=== PATIENT | female | born 1990 | race Caucasian/White ===

== ENCOUNTER → 2017-10-15 | Outpatient (REF) | payer OTHER ==
[2017-10-15 12:43] LABS: ALBUMIN 3.4 GM/DL (3.2-5.2); ALKALINE PHOSPHATASE 103 U/L (45-117); ALT/SGPT 34 U/L (12-78); ANION GAP 8 MEQ/L (8-16); AST/SGOT 20 U/L (7-37); BILIRUBIN,TOTAL 0.4 MG/DL (0.2-1.0); BLOOD UREA NITROGEN 13 MG/DL (7-18); CALCIUM LEVEL 8.9 MG/DL (8.5-10.1); CARBON DIOXIDE LEVEL 28 MEQ/L (21-32); CHLORIDE LEVEL 107 MEQ/L (98-107); CHOLESTEROL LEVEL 167 MG/DL (<200); CREATININE FOR GFR 0.86 MG/DL (0.55-1.30); FREE T4 0.99 NG/DL (0.76-1.46); GLOMERULAR FILTRATION RATE > 60.0 (>60); GLUCOSE, FASTING 95 MG/DL (70-100); HDL CHOLESTEROL 50 MG/DL (>40); LDL CHOLESTEROL 93.6 MG/DL (<100); NON-HDL-C 117 MG/DL; POTASSIUM SERUM 4.5 MEQ/L (3.5-5.1); SODIUM LEVEL 143 MEQ/L (136-145); TOTAL PROTEIN 6.5 GM/DL (6.4-8.2); TRIGLYCERIDES LEVEL 117 MG/DL (<150)
== END ==
LOC: M SFHCPLAZ 08:15
DX: Z00.00 Encounter for general adult medical examination without abnormal findings (principal); F32.9 Major depressive disorder, single episode, unspecified; Z68.41 Body mass index [BMI] 40.0-44.9, adult; Z13.220 Encounter for screening for lipoid disorders

== ENCOUNTER → 2018-01-08 | Outpatient (CLI) | payer OTHER ==
[2018-01-08 18:34] LABS: BASO % 0.2 % (0.0-1.0); EOS # 0.1 10^3/uL (0.0-0.50); EOS % 0.6 % (0.0-3.0); HEMATOCRIT 42.6 % (36.0-47.0); HEMOGLOBIN 13.7 g/dl (12.0-15.5); IMMATURE GRANULOCYTE % 0.4 % (0-3.0); LYMPH # 1.4 10^3/uL (1.5-6.5); LYMPH % 13.7 % (24.0-44.0); MEAN CORPUSCULAR HEMOGLOBIN 29.8 pg (27.0-33.0); MEAN CORPUSCULAR HGB CONC 32.2 g/dl (32.0-36.5); MEAN CORPUSCULAR VOLUME 92.8 fl (80.0-96.0); MONO # 0.6 10^3/uL (0.0-0.8); MONO % 5.8 % (0.0-5.0); NEUTROPHILS # 8.2 10^3/uL (1.8-7.7); NEUTROPHILS % 79.3 % (36.0-66.0); PLATELET COUNT, AUTOMATED 245 10^3/uL (150-450); RED BLOOD COUNT 4.59 10^6/uL (4.00-5.40); RED CELL DISTRIBUTION WIDTH 12.7 % (11.5-14.5); WHITE BLOOD COUNT 10.3 10^3/uL (4.0-10.0)
[2018-01-08 21:58] LABS: CHLAMYDIA DNA AMPLIFICATION NEGATIVE (NEGATIVE); GC DNA AMPLIFICATION NEGATIVE (NEGATIVE)
[2018-01-09 08:19] LABS: HBsAg Prenatal NEGATIVE (NEGATIVE); HIV 1&2 SCREEN CENTAUR NEGATIVE (NEGATIVE); RUBELLA IgG QUALITATIVE EQUIVOCAL (IMMUNE)
[2018-01-09 08:19] LABS: HEPATITIS C VIRUS ABY INDEX 0.2 INDEX (<0.8)
== END ==
LOC: M SMT 15:42
DX: Z34.81 Encounter for supervision of other normal pregnancy, first trimester (principal); Z3A.09 9 weeks gestation of pregnancy
CPT/HCPCS: 86762

== ENCOUNTER 2018-01-28 07:17 | Emergency (ER) | payer BC, OTHER ==
[2018-01-28 08:11] LABS: BASO % 0.1 % (0.0-1.0); EOS # 0.1 10^3/uL (0.0-0.50); EOS % 0.8 % (0.0-3.0); HEMATOCRIT 42.1 % (36.0-47.0); IMMATURE GRANULOCYTE % 0.3 % (0-3.0); LYMPH # 1.3 10^3/uL (1.5-6.5); LYMPH % 16.4 % (24.0-44.0); MEAN CORPUSCULAR HEMOGLOBIN 29.8 pg (27.0-33.0); MEAN CORPUSCULAR HGB CONC 33.3 g/dl (32.0-36.5); MEAN CORPUSCULAR VOLUME 89.6 fl (80.0-96.0); MONO # 0.4 10^3/uL (0.0-0.8); MONO % 4.9 % (0.0-5.0); NEUTROPHILS # 5.9 10^3/uL (1.8-7.7); NEUTROPHILS % 77.5 % (36.0-66.0); PLATELET COUNT, AUTOMATED 198 10^3/uL (150-450); RED CELL DISTRIBUTION WIDTH 12.9 % (11.5-14.5); WHITE BLOOD COUNT 7.6 10^3/uL (4.0-10.0)
[2018-01-28 08:40] LABS: KETONE, URINE AUTO RFX NEGATIVE (NEGATIVE); MUCUS, URINE RFX SMALL (NEGATIVE); NITRITE, URINE AUTO RFX NEGATIVE (NEGATIVE); RBC, URINE AUTO RFX 2 /HPF (0-3); SPECIFIC GRAVITY UR AUTO RFX 1.021 (1.002-1.035); SQUAM EPITHELIAL CELL UR AURFX 2 /HPF (0-6); URIC ACID CRYSTALS RFX SMALL; WBC, URINE AUTO RFX 3 /HPF (0-3)
[2018-01-28 08:42] LABS: HCG, SERUM QUANTITATIVE 60624 MIU/ML
[2018-01-28 09:06] LABS: LEUKOCYTE ESTERASE UR AUTO RFX TRACE (NEGATIVE)
[2018-01-28 10:30] LABS: CHLAMYDIA DNA AMPLIFICATION NEGATIVE (NEGATIVE); GC DNA AMPLIFICATION NEGATIVE (NEGATIVE)
== END 2018-01-28 09:48 | disposition home or self-care (01) ==
LOC: M ED 07:17
DX: O20.9 Hemorrhage in early pregnancy, unspecified (principal); Z3A.12 12 weeks gestation of pregnancy
CPT/HCPCS: 76801

== ENCOUNTER → 2018-02-13 | Outpatient (CLI) | payer BC, OTHER ==
[~2018-02-13] MED LIST: BACL10TA2 PO; EXCETAB80 PO; LEXA1TAB2 PO; NEXP1IMP SC; PREN1CHW4 PO; TIZA2CAP PO
[2018-02-13 17:31] LABS: HEMATOCRIT 45.1 % (36.0-47.0); HEMOGLOBIN 14.9 g/dl (12.0-15.5); MEAN CORPUSCULAR HEMOGLOBIN 30.3 pg (27.0-33.0); MEAN CORPUSCULAR VOLUME 91.9 fl (80.0-96.0); PLATELET COUNT, AUTOMATED 221 10^3/uL (150-450); RED BLOOD COUNT 4.91 10^6/uL (4.00-5.40); WHITE BLOOD COUNT 9.2 10^3/uL (4.0-10.0)
[2018-02-13 17:38] LABS: ALT/SGPT 23 U/L (12-78); BILIRUBIN,TOTAL 0.6 MG/DL (0.2-1.0); CREATININE FOR GFR 0.74 MG/DL (0.55-1.30); GLOMERULAR FILTRATION RATE > 60.0 (>60); LDH LACTATE DEHYDROGENASE 200 U/L (84-246); URIC ACID 2.4 MG/DL (2.6-6.0)
== END ==
LOC: M SMT 13:34
PROVIDERS: ATTEND Advanced Practice Midwife
DX: O10.12 Pre-existing hypertensive heart disease complicating childbirth (principal)

== ENCOUNTER → 2018-02-13 | Outpatient (REF) | payer BC, OTHER ==
[2018-02-13 19:01] LABS: TOTAL PROTEIN,RANDOM URINE 12.1 MG/DL (0.0-12.0)
== END ==
LOC: M LAB REF 17:33
PROVIDERS: ATTEND Advanced Practice Midwife
DX: O10.012 Pre-existing essential hypertension complicating pregnancy, second trimester (principal)

== ENCOUNTER → 2018-03-11 | Outpatient (CLI) | payer BC, OTHER ==
--- NOTE | 2018-03-11 19:52 | REP ---
Clinical: Anatomical evaluation. Comparison: 01/28/2018 . Findings: Examination demonstrates a single live intrauterine in footling breech presentation. motion is identified by technologist. Placenta is noted posterior and grade grade zero without evidence for placenta previa or abruption. Amniotic fluid volume is normal. Cervix measures 2.8 cm in length and appears closed. No evidence for nuchal cord. Gestational age by LMP 18 weeks 1 day with AMELIA 08/11/2018 . Gestational age by current measurements 17 weeks 6 days with AMELIA 08/13/2018 . FHR equals 147 beats per minute. BPD 3.7 cm 17 weeks 2 day HC 14.6 cm 17 weeks 6 day AC 12.3 cm 17 weeks 6 days FL 2.7 cm 18 weeks 1 day HL 2.6 cm 18 weeks 0 days HC/AC ratio 1.19 Estimated weight 219 grams ( 43rd percentile). Anatomical assessment demonstrates normal structures including cranium, choroid plexus, cavum, cerebellum/posterior fossa, facial features, lungs, diaphragm, stomach, cord insertion/three-vessel cord, kidneys/bladder, spine, and extremities. Limited evaluation of the heart/ventricular outflow tracts and facial profile noted. Impression: Single live intrauterine in footling breech presentation demonstrating appropriate interval growth. While no gross abnormalities are identified, limitations as noted above may warrant reevaluation and follow-up. Electronically Signed by Davis Sandoval MD 03/11/2018 07:45 P
== END ==
LOC: M LRY 14:58
PROVIDERS: ATTEND Advanced Practice Midwife
DX: Z36.9 Encounter for antenatal screening, unspecified (principal); Z3A.17 17 weeks gestation of pregnancy

== ENCOUNTER → 2018-04-01 | Outpatient (CLI) | payer BC, OTHER ==
--- NOTE | 2018-04-01 19:12 | REP ---
OB ULTRASOUND: Real-time sonographic evaluation of the gravid uterus is performed. There is a single living intrauterine gestation. The estimated gestational age is 21 weeks 1 day, EDC 08/11/2018. Today's measurements indicate appropriate growth. BPD 47 mm = 20 weeks 2 days, at the 27th percentile. HC 182 mm = 20 weeks 4 days, at the 34th percentile. AC 164 mm = 21 weeks 3 day, at the 57th percentile. Femur length 36 mm = 21 weeks 3 days, at the 59th percentile. HC/AC ratio 1.11 within normal range. Estimated weight 415 grams at the 54th percentile. heart rate 141 beats per minute. SEEN/GROSSLY UNREMARKABLE Lateral ventricles Yes Posterior fossa Yes Upper lip Yes Four-chamber heart No LVOT No RVOT No Stomach Yes Cord insertion Yes Three vessel cord Yes Kidneys Yes Bladder Yes Spine Yes position: Vertex. Placenta: Posterior and grade 0 with no previa or abruption. Amniotic fluid: Within normal limits. Cervix is closed and measures 3.4 cm in length. Electronically Signed by Baldomero Gomez MD 04/02/2018 10:30 A
== END ==
LOC: M LRY 13:40
PROVIDERS: ATTEND Specialist
DX: O10.012 Pre-existing essential hypertension complicating pregnancy, second trimester (principal); Z36.89 Encounter for other specified antenatal screening; Z3A.21 21 weeks gestation of pregnancy

== ENCOUNTER 2018-04-23 10:28 | Outpatient (CLI) | payer BC, OTHER ==
[~2018-04-23] VITALS: Ht 167.6 cm; Wt 112.0 kg
[2018-04-23] MEDS ORDERED: FIORICET TAB PO ONE (11:00)
[2018-04-23] MEDS ORDERED: ESGI1CAP PO (12:56)
== END 2018-04-23 12:15 | disposition home or self-care (01) ==
LOC: M LDO 10:28
PROVIDERS: ATTEND Obstetrics & Gynecology
DX: O26.892 Other specified pregnancy related conditions, second trimester (principal); Z3A.24 24 weeks gestation of pregnancy; G43.909 Migraine, unspecified, not intractable, without status migrainosus; O99.353 Diseases of the nervous system complicating pregnancy, third trimester
CPT/HCPCS: 59025; G0378; G0463

== ENCOUNTER → 2018-05-03 | Outpatient (CLI) | payer BC, OTHER ==
[~2018-05-03] MED LIST changes: +ESGI1CAP PO
--- NOTE | 2018-05-07 08:22 | REP ---
Clinical: Anatomical evaluation. Comparison: 04/01/2018 . Findings: Examination demonstrates a single live intrauterine in cephalic presentation. motion is identified by technologist. Placenta is noted posterior and grade grade zero without evidence for placenta previa or abruption. Amniotic fluid volume is normal. Cervix measures 3.6 cm in length and appears closed. No evidence for nuchal cord. Gestational age by LMP 25 weeks 5 days with AMELIA 08/11/2018 . Gestational age by current measurements 25 weeks 0 days with AMELIA 08/16/2018 . FHR equals 153 beats per minute. Estimated weight 808 grams ( 36 percentile). Anatomical assessment demonstrates normal structures including cranium, choroid plexus, cavum, cerebellum/posterior fossa, facial features, lungs, ventricular outflow tracts, diaphragm, stomach, cord insertion/three-vessel cord, kidneys/bladder, spine, and extremities. Impression: 1. Single live intrauterine in cephalic presentation demonstrating appropriate interval growth. 2. Limited evaluation of the four-chamber heart again noted due to lie and maternal body habitus. Remainder of the anatomical assessment is complete and normal. Electronically Signed by Davis Sandoval MD 05/07/2018 08:12 A
== END ==
LOC: M LRY 13:41
PROVIDERS: ATTEND Advanced Practice Midwife
DX: O10.012 Pre-existing essential hypertension complicating pregnancy, second trimester (principal); Z3A.25 25 weeks gestation of pregnancy

== ENCOUNTER → 2018-05-07 | Outpatient (CLI) | payer BC, OTHER ==
[2018-05-07 17:41] LABS: HEMATOCRIT 40.7 % (36.0-47.0); HEMOGLOBIN 12.8 g/dl (12.0-15.5); MEAN CORPUSCULAR HEMOGLOBIN 30.9 pg (27.0-33.0); MEAN CORPUSCULAR HGB CONC 31.4 g/dl (32.0-36.5); MEAN CORPUSCULAR VOLUME 98.3 fl (80.0-96.0); PLATELET COUNT, AUTOMATED 177 10^3/uL (150-450); RED BLOOD COUNT 4.14 10^6/uL (4.00-5.40)
== END ==
LOC: M SMT 10:22
PROVIDERS: ATTEND Advanced Practice Midwife
DX: O10.012 Pre-existing essential hypertension complicating pregnancy, second trimester (principal)

== ENCOUNTER → 2018-06-17 | Outpatient (CLI) | payer BC, OTHER ==
--- NOTE | 2018-06-18 03:46 | REP ---
Clinical: Hypertension for growth evaluation. Comparison: 05/03/2018 . Findings: Examination demonstrates a single live intrauterine in cephalic presentation. motion is identified by technologist. Placenta is noted posterior and grade at one without evidence for placenta previa or abruption. Amniotic fluid volume is normal. Cervix appears closed. No evidence for nuchal cord. Gestational age by LMP 32 weeks 1 day with AMELIA 08/11/2018 . Gestational age by current measurements 32 weeks 1 day with AMELIA the 08/11/2018 . FHR equals 141 beats per minute. BPD 8.0 cm 32 weeks 2 days HC 29.7 cm 32 weeks 6 days AC 28.9 cm 32 weeks 6 days FL 6.0 cm 31 weeks 3 days HL 5.4 cm 31 weeks 2 days HC/AC ratio 1.03 Estimated weight 1962 grams ( 49 percentile). Amniotic fluid index: 8.7 cm (8.6 - 24.2) Umbilical cord SD ratio: 3.24 (2.45 - 3.45). Anatomical assessment demonstrates normal structures including cranium, choroid plexus, cavum, facial features, lungs, four-chamber heart/ventricular outflow tracts, diaphragm, stomach, cord insertion/three-vessel cord, kidneys/bladder, and spine. Impression: 1. Single live advanced gestation in cephalic presentation demonstrating appropriate interval growth. 2. No gross abnormalities are identified. Electronically Signed by Davis Sandoval MD 06/18/2018 03:37 A
== END ==
LOC: M RAD 10:10
PROVIDERS: ATTEND Advanced Practice Midwife
DX: O10.013 Pre-existing essential hypertension complicating pregnancy, third trimester (principal); Z3A.32 32 weeks gestation of pregnancy

== ENCOUNTER → 2018-06-18 | Outpatient (CLI) | payer BC, OTHER ==
--- NOTE | 2018-06-18 16:47 | REP ---
BIOPHYSICAL PROFILE: HISTORY: Essential hypertension. A single intrauterine is present in vertex presentation. heart rate is 150 beats per minute. The placenta is posterior. There is no placenta previa or abruption. Amniotic fluid is 12.3 cm. The amniotic fluid volume is normal. Biophysical profile is 8/8. PSV 47.4 cubic centimeters. SD ratio 3.18. RI 0.69. IMPRESSION:The biophysical profile is 8/8. Electronically Signed by John Raphael MD 06/18/2018 04:48 P
== END ==
LOC: M RAD 14:15
PROVIDERS: ATTEND Obstetrics & Gynecology
DX: O10.013 Pre-existing essential hypertension complicating pregnancy, third trimester (principal)

== ENCOUNTER → 2018-07-17 | Outpatient (REF) | payer OTHER ==
[~2018-07-17] MED LIST changes: +LABE100T36 PO; +ZANTTAB PO
== END ==
LOC: M LAB REF 17:07
PROVIDERS: ATTEND Advanced Practice Midwife
DX: O10.013 Pre-existing essential hypertension complicating pregnancy, third trimester (principal)

== ENCOUNTER 2018-07-21 21:14 | Outpatient (CLI) | payer BC, OTHER ==
[~2018-07-21] VITALS: Ht 167.6 cm; Wt 113.5 kg
[~2018-07-21 21:14] MED LIST changes: -LABE100T36 PO; -ZANTTAB PO
[2018-07-21 21:28] VITALS: BP 139/72
[2018-07-21] MEDS ORDERED: LABE100T36 PO (22:03)
[2018-07-21] MEDS ORDERED: ZANTTAB PO (22:04)
[2018-07-27] MEDS ORDERED: TUMS500C PO (17:59)
[2018-07-27] MEDS ORDERED: MAPA500T2 PO (17:59)
[2018-07-27] MEDS ORDERED: SCOP1PAT2 TOP (17:59)
[2018-07-30] MEDS ORDERED: IBUP80TA PO (07:21)
[2018-07-30] MEDS ORDERED: ACET-683 PO (07:21)
== END 2018-07-21 22:40 | disposition home or self-care (01) ==
LOC: M LDO 21:14
PROVIDERS: ATTEND Obstetrics & Gynecology
DX: O36.8130 Decreased fetal movements, third trimester, not applicable or unspecified (principal); Z3A.37 37 weeks gestation of pregnancy
CPT/HCPCS: 59025; 76815; G0378; G0463

== ENCOUNTER → 2018-07-24 | Outpatient (CLI) | payer BC, OTHER ==
[~2018-07-24] MED LIST changes: +ACET-683 PO; +IBUP80TA PO; +LABE100T36 PO; +MAPA500T2 PO; +SCOP1PAT2 TOP; +TUMS500C PO; +ZANTTAB PO
== END ==
LOC: M WUC 15:58
PROVIDERS: ATTEND Advanced Practice Midwife
DX: O10.013 Pre-existing essential hypertension complicating pregnancy, third trimester (principal)

== ENCOUNTER → 2019-01-09 | Outpatient (REF) | payer OTHER ==
[~2019-01-09] MED LIST changes: +ZANT150T40 PO; -ZANTTAB PO
== END ==
LOC: M LAB REF 15:00
PROVIDERS: ATTEND Physician Assistant
DX: N39.0 Urinary tract infection, site not specified (principal)

== ENCOUNTER → 2019-08-12 | Outpatient (REF) | payer OTHER ==
[2019-08-12 14:30] LABS: ALBUMIN 3.8 GM/DL (3.2-5.2); ALT/SGPT 26 U/L (12-78); BILIRUBIN,TOTAL 0.7 MG/DL (0.2-1.0); BLOOD UREA NITROGEN 12 MG/DL (7-18); CALCIUM LEVEL 9.1 MG/DL (8.5-10.1); CARBON DIOXIDE LEVEL 27 MEQ/L (21-32); CHLORIDE LEVEL 107 MEQ/L (98-107); CHOLESTEROL LEVEL 208 MG/DL (<200); CREATININE FOR GFR 0.86 MG/DL (0.55-1.30); FREE T4 1.19 NG/DL (0.76-1.46); GLOMERULAR FILTRATION RATE > 60.0 (>60); GLUCOSE, FASTING 95 MG/DL (70-100); HDL CHOLESTEROL 50 MG/DL (>40); LDL CHOLESTEROL 141 MG/DL (<100); NON-HDL-C 158 MG/DL; SODIUM LEVEL 138 MEQ/L (136-145); TOTAL PROTEIN 6.9 GM/DL (6.4-8.2); TRIGLYCERIDES LEVEL 86 MG/DL (<150)
== END ==
LOC: M SFHCPLAZ 09:57
PROVIDERS: ATTEND Physician Assistant
DX: F32.9 Major depressive disorder, single episode, unspecified (principal); F41.9 Anxiety disorder, unspecified; I11.9 Hypertensive heart disease without heart failure; Z13.220 Encounter for screening for lipoid disorders

== ENCOUNTER 2020-02-18 11:14 | Emergency (ER) | payer OTHER ==
[~2020-02-18] VITALS: Ht 167.6 cm; Wt 122.7 kg
[2020-02-18] MEDS ORDERED: PARO20TA3 PO (11:20)
[2020-02-18] MEDS ORDERED: LISI10TA4 PO (11:20)
--- NOTE | 2020-02-18 11:52 | REP ---
INDICATION: trauma COMPARISON: None. TECHNIQUE: AP, lateral, bilateral oblique views. FINDINGS: Moderate swelling. No obvious acute fracture or dislocation. Ankle mortise appears intact. IMPRESSION: Moderate swelling. No obvious acute fracture or dislocation. <Electronically signed by Davis Sandoval > 02/18/20 [id number]
[2020-02-18] MEDS ORDERED: ACETAMINOPHEN 500 MG TAB PO ONE (12:15)
[2020-02-18 12:32] VITALS: BP 136/71
== END 2020-02-18 12:48 | disposition home or self-care (01) ==
LOC: M ED 11:14
DX: S93.401A Sprain of unspecified ligament of right ankle, initial encounter (principal); X50.9XXA Other and unspecified overexertion or strenuous movements or postures, initial encounter; Y92.012 Bathroom of single-family (private) house as the place of occurrence of the external cause; I10 Essential (primary) hypertension; F33.9 Major depressive disorder, recurrent, unspecified; F41.9 Anxiety disorder, unspecified; Z79.899 Other long term (current) drug therapy; Z88.8 Allergy status to other drugs, medicaments and biological substances

== ENCOUNTER → 2020-06-07 | Outpatient (CLI) | payer OTHER ==
[~2020-06-07] MED LIST changes: -LABE100T36 PO; +LABE100T5 PO; +LISI10TA22 PO; +PARO20TA3 PO
--- NOTE | 2020-06-08 20:25 | ECGEPIP ---
[facility] Test Date: 2020-06-07 Pat Name: HERBIE BELTRAN Department: Room: - Gender: Female Second Worker: christopher : 1990 Requested By: Deep Kramer Order Number: [id number] Reading MD: Augustus Griffiths Measurements Intervals Soso Rate: 91 P: 36 FL: 184 QRS: 41 QRSD: 90 T: 24 QT: 340 QTc: 418 Interpretive Statements SINUS RHYTHM NO PRIOR Electronically Signed on 06-08-2020 20:25:10 EDT by Augustus Griffiths
== END ==
LOC: M EKG 14:00
PROVIDERS: ATTEND Psychiatry & Neurology Psychiatry
DX: Z79.899 Other long term (current) drug therapy (principal)

== ENCOUNTER → 2021-09-06 | Outpatient (CLI) | payer OTHER ==
[~2021-09-06] MED LIST changes: +ETON68IM SC; -NEXP1IMP SC; -SCOP1PAT2 TOP; +TRAN1DIS4 TOP
[2021-09-06 17:15] LABS: BASO % 0.2 % (0.0-1.0); EOS # 0.1 10^3/uL (0.0-0.5); EOS % 0.8 % (0.0-3.0); HEMATOCRIT 42.8 % (36.0-47.0); HEMOGLOBIN 13.9 g/dl (12.0-15.5); LYMPH # 1.2 10^3/uL (1.5-5.0); LYMPH % 12.7 % (24.0-44.0); MEAN CORPUSCULAR HEMOGLOBIN 28.9 pg (27.0-33.0); MEAN CORPUSCULAR HGB CONC 32.5 g/dl (32.0-36.5); MONO # 0.5 10^3/uL (0.0-0.8); MONO % 5.6 % (2.0-8.0); NEUTROPHILS # 7.4 10^3/uL (1.5-8.5); NEUTROPHILS % 80.3 % (36.0-66.0); PLATELET COUNT, AUTOMATED 252 10^3/uL (150-450); RED BLOOD COUNT 4.81 10^6/uL (4.00-5.40); WHITE BLOOD COUNT 9.2 10^3/uL (4.0-10.0)
[2021-09-06 18:02] LABS: ALT/SGPT 18 U/L (12-78); BILIRUBIN,TOTAL 0.8 MG/DL (0.2-1.0); CREATININE FOR GFR 0.74 MG/DL (0.55-1.30); GLOMERULAR FILTRATION RATE > 60.0 (>60); LDH LACTATE DEHYDROGENASE 190 U/L (84-246); URIC ACID 2.5 MG/DL (2.6-6.0)
[2021-09-06 18:12] LABS: TOTAL PROTEIN,RANDOM URINE 13.3 MG/DL (0.0-12.0)
[2021-09-06 20:07] LABS: HEPATITIS C VIRUS ABY INDEX 0.1 INDEX (<0.8); HIV 1&2 SCREEN CENTAUR NEGATIVE (NEGATIVE)
[2021-09-06 21:08] LABS: GC DNA AMPLIFICATION NEGATIVE (NEGATIVE)
== END ==
LOC: M PLALAB 15:52
PROVIDERS: ATTEND Advanced Practice Midwife
DX: Z34.91 Encounter for supervision of normal pregnancy, unspecified, first trimester (principal); Z3A.00 Weeks of gestation of pregnancy not specified

== ENCOUNTER → 2021-10-06 | Outpatient (REF) | payer OTHER ==
[~2021-10-06] MED LIST changes: -LABE100T5 PO; +LABE100T71 PO
== END ==
LOC: M PLALAB 10:44
PROVIDERS: ATTEND Obstetrics & Gynecology
DX: R82.90 Unspecified abnormal findings in urine (principal); Z53.8 Procedure and treatment not carried out for other reasons

== ENCOUNTER → 2021-10-06 | Outpatient (REF) | payer OTHER | LOC: M SFHCWAGY 13:04 | PROVIDERS: ATTEND Obstetrics & Gynecology | DX: R82.90 Unspecified abnormal findings in urine (principal) ==

== ENCOUNTER → 2021-12-01 | Outpatient (CLI) | payer OTHER | LOC: M WHC 14:41 | PROVIDERS: ATTEND Obstetrics & Gynecology | DX: Z36.2 Encounter for other antenatal screening follow-up (principal); Z3A.00 Weeks of gestation of pregnancy not specified ==

== ENCOUNTER → 2022-01-04 | Outpatient (CLI) | payer OTHER | LOC: M WHC 12:47 | PROVIDERS: ATTEND Specialist | DX: Z34.82 Encounter for supervision of other normal pregnancy, second trimester (principal); Z3A.29 29 weeks gestation of pregnancy ==

== ENCOUNTER → 2022-01-13 | Outpatient (CLI) | payer OTHER ==
[2022-01-13 11:53] LABS: HEMATOCRIT 37.8 % (36.0-47.0); HEMOGLOBIN 12.4 g/dl (12.0-15.5); MEAN CORPUSCULAR HEMOGLOBIN 30.3 pg (27.0-33.0); MEAN CORPUSCULAR HGB CONC 32.8 g/dl (32.0-36.5); MEAN CORPUSCULAR VOLUME 92.4 fl (80.0-96.0); PLATELET COUNT, AUTOMATED 162 10^3/uL (150-450); RED BLOOD COUNT 4.09 10^6/uL (4.00-5.40); WHITE BLOOD COUNT 8.8 10^3/uL (4.0-10.0)
[2022-01-13 14:17] LABS: GC DNA AMPLIFICATION NEGATIVE (NEGATIVE)
== END ==
LOC: M LAB 11:03
PROVIDERS: ATTEND Specialist
DX: Z34.82 Encounter for supervision of other normal pregnancy, second trimester (principal)

== ENCOUNTER → 2022-02-21 | Outpatient (REF) | payer OTHER | LOC: M SFHCWAGY 13:01 | PROVIDERS: ATTEND Advanced Practice Midwife | DX: Z34.93 Encounter for supervision of normal pregnancy, unspecified, third trimester (principal) ==

== ENCOUNTER → 2022-03-07 | Outpatient (CLI) | payer OTHER ==
[2022-03-07 13:28] LABS: HEMATOCRIT 38.1 % (36.0-47.0); HEMOGLOBIN 12.3 g/dl (12.0-15.5); MEAN CORPUSCULAR HEMOGLOBIN 30.1 pg (27.0-33.0); MEAN CORPUSCULAR HGB CONC 32.3 g/dl (32.0-36.5); MEAN CORPUSCULAR VOLUME 93.2 fl (80.0-96.0); PLATELET COUNT, AUTOMATED 146 10^3/uL (150-450); RED BLOOD COUNT 4.09 10^6/uL (4.00-5.40); WHITE BLOOD COUNT 9.1 10^3/uL (4.0-10.0)
[2022-03-07 13:46] LABS: TOTAL PROTEIN,RANDOM URINE 14.7 MG/DL (0.0-14.0)
[2022-03-07 13:49] LABS: URIC ACID 3.3 MG/DL (3.1-7.8)
[2022-03-07 13:51] LABS: CREATININE,RANDOM URINE 103.1 MG/DL; LDH LACTATE DEHYDROGENASE 176 U/L (120-246)
[2022-03-07 13:57] LABS: ALT/SGPT < 9 U/L (7.0-40); AST/SGOT 14 U/L (<34); BILIRUBIN,TOTAL 0.5 MG/DL (0.3-1.2); CREATININE FOR GFR 0.67 MG/DL (0.55-1.30); GLOMERULAR FILTRATION RATE > 60.0 (>60)
== END ==
LOC: M PLALAB 09:35
PROVIDERS: ATTEND Advanced Practice Midwife
DX: O10.013 Pre-existing essential hypertension complicating pregnancy, third trimester (principal); Z3A.00 Weeks of gestation of pregnancy not specified

== ENCOUNTER 2022-03-11 10:19 | Inpatient (IN) | payer OTHER ==
[2022-03-11] VITALS (39 sets, daily range): BP systolic 116–194; BP diastolic 55–97
[~2022-03-11] VITALS: Ht 167.6 cm; Wt 118.0 kg
[2022-03-11] MEDS ORDERED: LIDOCAINE 1% MDV 20ML VIAL INFIL PRN (10:50)
[2022-03-11] MEDS ORDERED: OXYTOCIN DRIP 30 UNITS in IV 1 EA IV PRN (10:50)
[2022-03-11] MEDS ORDERED: RITA20TA PO (11:21)
[2022-03-11] MEDS ORDERED: TUMS500C PO (11:21)
[2022-03-11] MEDS ORDERED: DICL10TA PO (11:21)
[2022-03-11] MEDS ORDERED: COLA100C5 PO (11:21)
[2022-03-11 11:24] LABS: HEMATOCRIT 36.8 % (36.0-47.0); HEMOGLOBIN 12.3 g/dl (12.0-15.5); MEAN CORPUSCULAR HEMOGLOBIN 30.4 pg (27.0-33.0); MEAN CORPUSCULAR HGB CONC 33.4 g/dl (32.0-36.5); MEAN CORPUSCULAR VOLUME 90.9 fl (80.0-96.0); PLATELET COUNT, AUTOMATED 134 10^3/uL (150-450); RED BLOOD COUNT 4.05 10^6/uL (4.00-5.40); WHITE BLOOD COUNT 8.7 10^3/uL (4.0-10.0)
[2022-03-11] MEDS: miSOPROStol 50MCG 1/2 TABLET SL SCH ×3 (11:24→21:24)
[2022-03-11] MEDS ORDERED: HOME MED LIST COMPLETE! XX SCH (11:25)
[2022-03-11] MEDS ORDERED: LR 500 ML IV PRN (19:10)
[2022-03-11] MEDS ORDERED: diphenhydrAMINE 50MG/ML VIAL IV PRN (19:10)
[2022-03-11] MEDS ORDERED: ePHEDrine SULFATE 25 MG/5 ML(5MG/ML) SYRINGE IVP PRN (19:10)
[2022-03-11] MEDS ORDERED: ONDANSETRON 4MG 2ML VIAL IV PRN (19:10)
[2022-03-11] MEDS ORDERED: EPIDURAL/PCA KEYS XX PRN (19:10)
[2022-03-11] MEDS ORDERED: NALOXONE INJ 0.4MG/1ML VIAL IV PRN (19:10)
[2022-03-11] MEDS: FENTANYL/ROPIVACAINE/NACL BAG 100 ML EPIDURAL SCH (19:49)
[2022-03-11] MEDS ORDERED: ACETAMINOPHEN 500 MG TAB PO ONE (21:45)
[2022-03-11] MEDS ORDERED: BUTORPHANOL 2 MG/ML 1ML VIAL IV ONE (23:40)
[2022-03-11] MEDS ORDERED: PROMETHAZINE 25MG/ML 1ML VIAL IV ONE (23:40)
[2022-03-11] MEDS ORDERED: OXYTOCIN DRIP 30 UNITS in IV 1 EA IV SCH (23:55)
[2022-03-12] VITALS (19 sets, daily range): BP systolic 120–147; BP diastolic 67–107
[2022-03-12] MEDS: FENTANYL/ROPIVACAINE/NACL BAG 100 ML EPIDURAL SCH (05:10)
[2022-03-12] MEDS ORDERED: IBUPROFEN 600MG TAB PO PRN (07:55)
[2022-03-12] MEDS ORDERED: IBUPROFEN 800 MG TAB PO PRN (07:55)
[2022-03-12] MEDS ORDERED: DIBUCAINE 1% OINTMENT 30GM TOP PRN (07:55)
[2022-03-12] MEDS ORDERED: ACETAMINOPHEN 500 MG TAB PO PRN (07:55)
[2022-03-12] MEDS ORDERED: METHYLERGONOVINE MALEATE 0.2 MG TAB PO PRN (07:55)
[2022-03-12] MEDS ORDERED: RHOGAM 300MCG (1500IU) INJ IM SCH (07:55)
[2022-03-12] MEDS ORDERED: DOCUSATE SODIUM 100MG CAPSULE PO PRN (07:55)
[2022-03-12] MEDS: PRENATAL VITAMINS CHEWABLE TABLET PO SCH (09:00)
[2022-03-13 06:00] VITALS: BP 126/63
[2022-03-13] MEDS: ACETAMINOPHEN TAB 650MG DOSE (2X325MG) PO PRN ×2 (06:02→23:50)
[2022-03-13] MEDS: PRENATAL VITAMINS CHEWABLE TABLET PO SCH (09:00)
[2022-03-13 09:50] VITALS: BP 125/79
[2022-03-13 15:15] VITALS: BP 138/70
[2022-03-13 18:00] VITALS: BP 134/68
[2022-03-14] MEDS: ACETAMINOPHEN TAB 650MG DOSE (2X325MG) PO PRN (04:00)
[2022-03-14 06:00] VITALS: BP 113/73
[2022-03-14] MEDS: PRENATAL VITAMINS CHEWABLE TABLET PO SCH (07:36)
[2022-03-14] MEDS ORDERED: MEASLES,MUMPS,RUBELLA VACCINE INJ (MMR-II) SC.IMMUN ONE (09:00)
[2022-03-14] MEDS ORDERED: IBUP-1022 PO (11:09)
[2022-03-14] MEDS ORDERED: ACET-683 PO (11:09)
[2022-03-14] MEDS ORDERED: COLA100C5 PO (11:09)
== END 2022-03-14 13:25 | disposition home or self-care (01) | DRG 807 ==
LOC: M LDI 10:19 → M OBS 03-12 09:54
PROVIDERS: ADMIT Specialist; ATTEND Specialist
PROC: 3E0P7GC Introduction of Other Therapeutic Substance into Female Reproductive, Via Natural or Artificial Opening (ICD-10-PCS; 2022-03-11)
PROC: 10E0XZZ Delivery of Products of Conception, External Approach (ICD-10-PCS; principal; 2022-03-12)
PROC: 0HQ9XZZ Repair Perineum Skin, External Approach (ICD-10-PCS; 2022-03-12)
PROC: 10907ZC Drainage of Amniotic Fluid, Therapeutic from Products of Conception, Via Natural or Artificial Opening (ICD-10-PCS; 2022-03-12)
PROC: 3E0S3GC Introduction of Other Therapeutic Substance into Epidural Space, Percutaneous Approach (ICD-10-PCS; 2022-03-13)
DX: O13.4 Gestational [pregnancy-induced] hypertension without significant proteinuria, complicating childbirth (principal); Z37.0 Single live birth; Z3A.38 38 weeks gestation of pregnancy; Z79.899 Other long term (current) drug therapy; O70.0 First degree perineal laceration during delivery; O89.4 Spinal and epidural anesthesia-induced headache during the puerperium

== ENCOUNTER → 2022-08-02 | Outpatient (REF) | payer OTHER ==
[~2022-08-02] MED LIST changes: +COLA100C5 PO; +DICL10TA PO; +IBUP-1022 PO; +RITA20TA PO
== END ==
LOC: M SFHCWAGY 17:09
PROVIDERS: ATTEND Specialist
DX: Z12.4 Encounter for screening for malignant neoplasm of cervix (principal)
CPT/HCPCS: 87624; G0123

== ENCOUNTER → 2023-05-04 | Outpatient (CLI) | payer OTHER ==
[~2023-05-04] MED LIST changes: +LABE100T40 PO; -LABE100T71 PO
[2023-05-04 12:44] LABS: BASO % 0.4 % (0.0-1.0); EOS # 0.1 10^3/uL (0.0-0.5); EOS % 1.6 % (0.0-3.0); HEMATOCRIT 43.2 % (36.0-47.0); LYMPH # 1.2 10^3/uL (1.5-5.0); LYMPH % 21.8 % (24.0-44.0); MEAN CORPUSCULAR HEMOGLOBIN 29.7 pg (27.0-33.0); MEAN CORPUSCULAR HGB CONC 32.4 g/dl (32.0-36.5); MEAN CORPUSCULAR VOLUME 91.5 fl (80.0-96.0); MONO # 0.4 10^3/uL (0.0-0.8); MONO % 6.4 % (2.0-8.0); NEUTROPHILS # 3.9 10^3/uL (1.5-8.5); NEUTROPHILS % 69.6 % (36.0-66.0); PLATELET COUNT, AUTOMATED 248 10^3/uL (150-450); RED BLOOD COUNT 4.72 10^6/uL (4.00-5.40); WHITE BLOOD COUNT 5.6 10^3/uL (4.0-10.0)
[2023-05-04 13:09] LABS: ALBUMIN 3.8 G/DL (3.2-5.2); ALKALINE PHOSPHATASE 121 U/L (46-116); ALT/SGPT 25 U/L (7.0-40); AST/SGOT 16 U/L (<34); BILIRUBIN,TOTAL 0.5 MG/DL (0.3-1.2); BLOOD UREA NITROGEN 18 MG/DL (9-23); CALCIUM LEVEL 8.9 MG/DL (8.5-10.1); CARBON DIOXIDE LEVEL 30 MMOL/L (20-31); CHLORIDE LEVEL 106 MMOL/L (98-107); CHOLESTEROL LEVEL 193 MG/DL (<200); CHOLESTEROL RISK RATIO 4.27 (<5); CREATININE FOR GFR 0.79 MG/DL (0.55-1.30); GLOMERULAR FILTRATION RATE > 60.0 (>60); GLUCOSE, FASTING 86 MG/DL (60-100); HDL CHOLESTEROL 45.1 MG/DL (>40); LDL CHOLESTEROL 125.1 MG/DL (<100); NON-HDL-C 147.9 MG/DL; POTASSIUM SERUM 4.1 MMOL/L (3.5-5.1); SODIUM LEVEL 140 MMOL/L (136-145); THYROID STIMULATING HORMONE 1.252 uIU/ML (0.55-4.78); TOTAL PROTEIN 6.7 G/DL (5.7-8.2); TRIGLYCERIDES LEVEL 114 MG/DL (<150)
[2023-05-04 13:10] LABS: FREE T4 1.11 NG/DL (0.89-1.76)
== END ==
LOC: M LAB 11:48
PROVIDERS: ATTEND Registered Nurse
DX: E66.9 Obesity, unspecified (principal)

== ENCOUNTER → 2023-11-06 | Outpatient (CLI) | payer OTHER ==
[2023-11-06 19:45] LABS: BASO % 0.4 % (0.0-1.0); EOS # 0.1 10^3/uL (0.0-0.5); EOS % 1.9 % (0.0-3.0); HEMOGLOBIN 13.6 g/dl (12.0-15.5); LYMPH # 1.5 10^3/uL (1.5-5.0); LYMPH % 30.8 % (24.0-44.0); MEAN CORPUSCULAR HEMOGLOBIN 29.3 pg (27.0-33.0); MEAN CORPUSCULAR HGB CONC 32.4 g/dl (32.0-36.5); MEAN CORPUSCULAR VOLUME 90.5 fl (80.0-96.0); MONO # 0.4 10^3/uL (0.0-0.8); MONO % 8.1 % (2.0-8.0); NEUTROPHILS # 2.8 10^3/uL (1.5-8.5); NEUTROPHILS % 58.6 % (36.0-66.0); PLATELET COUNT, AUTOMATED 214 10^3/uL (150-450); RED BLOOD COUNT 4.64 10^6/uL (4.00-5.40); WHITE BLOOD COUNT 4.8 10^3/uL (4.0-10.0)
[2023-11-06 20:08] LABS: ALKALINE PHOSPHATASE 86 U/L (46-116); ALT/SGPT 24 U/L (7.0-40); AST/SGOT 18 U/L (<34); BILIRUBIN,TOTAL 0.7 MG/DL (0.3-1.2); BLOOD UREA NITROGEN 16 MG/DL (9-23); CALCIUM LEVEL 8.7 MG/DL (8.5-10.1); CARBON DIOXIDE LEVEL 28 MMOL/L (20-31); CHLORIDE LEVEL 106 MMOL/L (98-107); FERRITIN 19.4 NG/ML (7.3-270.7); GLOMERULAR FILTRATION RATE > 60.0 (>60); GLUCOSE, FASTING 83 MG/DL (60-100); IRON (FE) 86 UG/DL (50-170); POTASSIUM SERUM 4.1 MMOL/L (3.5-5.1); SODIUM LEVEL 139 MMOL/L (136-145); THYROID STIMULATING HORMONE 0.952 uIU/ML (0.55-4.78); TOTAL 25(OH) VITAMIN D 30.6 NG/ML (20.0-100.0); TOTAL IRON BINDING CAPACITY 374 UG/DL (250-425); TOTAL PROTEIN 6.7 G/DL (5.7-8.2); TOTAL T3 117.4 NG/DL (60.0-181.0)
[2023-11-06 20:09] LABS: FREE T4 1.42 NG/DL (0.89-1.76)
[2023-11-06 20:10] LABS: VITAMIN B12 LEVEL 564 PG/ML (211-911)
== END ==
LOC: M WUC 11:41
PROVIDERS: ATTEND Nurse Practitioner Family
DX: D64.9 Anemia, unspecified (principal); R53.83 Other fatigue; G25.81 Restless legs syndrome; E55.9 Vitamin D deficiency, unspecified

== ENCOUNTER → 2024-12-16 | Outpatient (CLI) | payer OTHER ==
[~2024-12-16] MED LIST changes: -IBUP-1022 PO; +IBUP600T42 PO
[2024-12-16 17:59] LABS: BASO # 0.0 10^3/uL (0.0-0.2); BASO % 0.4 % (0.0-1.0); EOS # 0.1 10^3/uL (0.0-0.5); EOS % 1.8 % (0.0-3.0); LYMPH # 1.4 10^3/uL (1.5-5.0); LYMPH % 31.7 % (24.0-44.0); MONO # 0.4 10^3/uL (0.0-0.8); MONO % 7.8 % (2.0-8.0); NEUTROPHILS # 2.6 10^3/uL (1.5-8.5); NEUTROPHILS % 58.1 % (36.0-66.0); PLATELET COUNT, AUTOMATED 215 10^3/uL (150-450)
[2024-12-16 18:27] LABS: FREE T4 1.53 NG/DL (0.89-1.76)
[2024-12-16 18:30] LABS: ALT/SGPT 18 U/L (7.0-40); AST/SGOT 17 U/L (<34); CALCIUM LEVEL 9.3 MG/DL (8.5-10.1); CARBON DIOXIDE LEVEL 28 MMOL/L (20-31); CHLORIDE LEVEL 105 MMOL/L (98-107); CHOLESTEROL LEVEL 169 MG/DL (<200); CHOLESTEROL RISK RATIO 3.08 (<5); CREATININE FOR GFR 0.81 MG/DL (0.55-1.30); GLOMERULAR FILTRATION RATE > 90.0 (>60); LDL CHOLESTEROL 100.8 MG/DL (<100); NON-HDL-C 114.2 MG/DL; POTASSIUM SERUM 4.1 MMOL/L (3.5-5.1); SODIUM LEVEL 143 MMOL/L (136-145); TRIGLYCERIDES LEVEL 67 MG/DL (<150)
[2024-12-16 18:32] LABS: THYROID PEROXIDASE ANTIBODY < 28.0 U/ML (<60.0)
[2024-12-16 18:55] LABS: ESTIMATED AVERAGE GLUCOSE 91.0 MG/DL (60-110)
== END ==
LOC: M WUC 14:04
PROVIDERS: ATTEND Registered Nurse
DX: E66.9 Obesity, unspecified (principal)